=== PATIENT | male | born 1945 | race Caucasian/White ===

== ENCOUNTER 2025-10-17 06:51 | Day surgery (SDC) | payer OTHER ==
[~2025-10-17 06:51] MED LIST: ALLEGRA ALLERG180 MG PO; ATOR20 PO; Amlodipine Bes2.5 MG PO; Balanced Salt Epinephrine Irrigation Solution 500 mL IR SCH; DESONIDE15 G1 TOP; DICLOFENAC SOD100 GM; HYDCHL25 PO; IBUP800 PO; LEVSOD75 PO; LOSA50 PO; Moxifloxacin HCL 0.5 MG/0.1 ML 0.4MLSYR RIGHTEYE SCH; NS 500 ML IV ONE; OMEP20ER PO; PHENYLEPHRINE\\TROPICAMIDE\\TETRACAINE OPHTHALMIC DILATING SOLN RIGHTEYE PRN; Povidone-Iodine 450 DROP/30 ML Solution ONE; Povidone-Iodine 450 DROP/30 ML Solution RIGHTEYE SCH; TAMS.4ER PO; Tetracaine HCl/Pf 0.5% Opth Soln 4 ml ONE
[2025-10-17] MEDS ORDERED: NS 1,000 ML IV ONE (07:19)
--- NOTE | 2025-10-17 07:20 | NUR ---
10/17/25 0720 VALERIY CAMP RESTING ON GURNEY, CALL LIGHT IN REACH, RAILS UP, BRAKES LOCKED. PT DENIES NEEDS AT THIS TIME.
[2025-10-17] MEDS ORDERED: Midazolam HCl 1MG / ML 2ML Vial ONE (07:21)
[2025-10-17] MEDS ORDERED: FentaNYL Citrate 50 MCG/ML 2 ML Injection ONE (07:21)
[2025-10-17 08:48] VITALS: BP 114/80
== END 2025-10-17 08:38 | disposition home or self-care (01) ==
LOC: ORSCSDS 06:51
PROVIDERS: Student in an Organized Health Care Education/Training Program
PROC: 08RJ3JZ Replacement of Right Lens with Synthetic Substitute, Percutaneous Approach (ICD-10-PCS; principal; 2025-10-17 08:30)
DX: H25.811 Combined forms of age-related cataract, right eye (principal); H21.81 Floppy iris syndrome; Z96.1 Presence of intraocular lens; I10 Essential (primary) hypertension; K21.9 Gastro-esophageal reflux disease without esophagitis; E07.9 Disorder of thyroid, unspecified; Z79.899 Other long term (current) drug therapy; Z87.891 Personal history of nicotine dependence
CPT/HCPCS: J2250; J3010; J7040; V2632